=== PATIENT | male | born 1995 | race African-American/Black ===

== ENCOUNTER 2016-10-03 14:31 | Emergency (ER) | payer OTHER ==
[2016-10-03] MEDS: SODIUM CHLORIDE 0.9% 1,000 ML IV ONE (15:27)
[2016-10-03 15:33] LABS: Basophils # (auto) 0 uL; Basophils % (auto) 0.5 % (0.0-2.0); Eosinophils # (auto) 0.1 uL; Eosinophils % (auto) 1.5 % (0.0-7.0); Hematocrit 46.8 % (41.0-53.0); Hemoglobin 15.6 g/dL (13.5-17.5); Lymphocytes # (auto) 2.4 uL; Lymphocytes % (auto) 28.4 % (10.0-50.0); Mean Corpuscular Hgb Conc. 33.4 g/dL (32.0-36.0); Mean Corpuscular Volume 89.8 fL (80.0-100.0); Mean Platelet Volume 8.6 fL (7.4-10.4); Monocytes % (auto) 11.6 % (0.0-12.0); Neutrophils # (auto) 4.9 uL; Platelet Count (auto) 358 10^3/uL (140-450); Red Cell Distribution Width 15.2 % (11.6-16.0); White Blood Cell 8.4 10^3/uL (4.4-10.8)
[2016-10-03 15:53] LABS: Albumin 4.3 g/dL (3.4-5.0); Anion Gap 10 (5-15); Aspartate Aminotransferase 34 U/L (15-37); BUN/Creatinine Ratio 14.3; Blood Urea Nitrogen 13 mg/dL (7-18); Calcium 9.3 mg/dL (8.5-10.1); Carbon Dioxide 28 mmol/L (21-32); Chloride 104 mmol/L (98-107); GFR African American 135 mL/min; GFR Non-African American 112 mL/min; Glucose 53 mg/dL (74-106); Magnesium 2.4 mg/dL (1.6-2.6); Sodium 142 mmol/L (136-145)
[2016-10-03 16:04] LABS: Alkaline Phosphatase 105 U/L (45-117); Bilirubin, Total 0.5 mg/dL (0.2-1.0); Total Protein 9.1 g/dL (6.4-8.2)
[2016-10-03] MEDS: DEXTROSE (50%) 50ML SYRG IV ONE (16:50)
[2016-10-03] MEDS: D5W/SOD CHLO 0.9% 1,000 ML IV ONE (16:53)
[2016-10-03] MEDS ORDERED: AZITHROMYCIN 500MG/D5W 250ML 250 ML IV ONE (17:00)
[2016-10-03] MEDS ORDERED: cefTRIAXone 1GM/50ML D5W 50 ML IV ONE (17:00)
[2016-10-03] MEDS: InsuLIN REG 1unit/0.01ml Soln (100units/ml) IV ONE (21:46)
[2016-10-03 21:47] LABS: Urine RBC None Seen /hpf (0 - 3)
[2016-10-03 21:58] LABS: Urine Bilirubin Negative (Negative); Urine Blood Negative /uL (Negative); Urine Color Yellow (Yellow); Urine Nitrite Negative (Negative); Urine Squamous Epithelial Cell FEW /hpf (<5); Urine Urobilinogen Normal (Negative); Urine pH 6.5 (5.0-8.0)
[2016-10-03 22:17] VITALS: BP 111/60
[2016-10-03 22:39] LABS: Urine Glucose 4+ mg/dL (Normal); Urine Ketone 1+ (Negative)
== END 2016-10-03 22:40 | disposition short-term general hospital (02) ==
LOC: ER 14:31
DX: E10.649 Type 1 diabetes mellitus with hypoglycemia without coma (principal); R53.1 Weakness; Z79.4 Long term (current) use of insulin
CPT/HCPCS: 36415; 71020; 80053; 81001; 82962; 83735; 84484; 85025; 87040; 93005; 96361; 96374; 96375; 99291; J1815; J7030; J7042